=== PATIENT | female | born 1980 | race Caucasian/White ===

== ENCOUNTER 2017-03-30 23:25 | Emergency (ER) | payer OTHER | END 2017-03-31 04:48 | disposition home or self-care (01) | LOC: ER 23:25 | DX: R10.9 Unspecified abdominal pain (principal); I10 Essential (primary) hypertension; F17.210 Nicotine dependence, cigarettes, uncomplicated; Z88.5 Allergy status to narcotic agent; Z88.1 Allergy status to other antibiotic agents; Z79.891 Long term (current) use of opiate analgesic | CPT/HCPCS: 96372; 99282-25 ==